=== PATIENT | female | born 2000 | race Caucasian/White ===

== ENCOUNTER 2025-04-09 13:02 | Outpatient (CLI) | payer SELFPAY ==
--- NOTE | ~2025-04-09 | CT_ITS ---
EXAMINATION: CT soft tissue neck wo/w con DATE: 04/09/2025 13:28 INDICATION: Right-sided neck swelling TECHNIQUE: Computed tomography (CT) of the neck was performed without and with 75 mL Omnipaque-350 intravenous contrast. Automated exposure control and iterative reconstruction technique were employed. The dose-length product was 703.59 mGy-cm. COMPARISON: None FINDINGS: Orbits are normal. Scattered mild mucosal thickening in the paranasal sinuses. Mastoid air cells and middle ear cavities are clear. Submandibular and parotid glands are normal and symmetric. Thyroid gland is unremarkable. There are scattered normal-sized lymph nodes in the neck, no lymphadenopathy. No masses or abnormal fluid collections identified. The vasculature is patent and normal in caliber. Airway is unremarkable. Calcified nodule superior segment of the left upper lobe along with calcified mediastinal and bilateral hilar lymph nodes consistent with old granulomatous disease. Bones are unremarkable. IMPRESSION: 1. Soft tissues of the neck are unremarkable with no abnormal masses, fluid collections or pathologically enlarged lymphadenopathy. Reviewed, dictated and finalized at location A. [facility] [employer] IMPRESSION: 1. Soft tissues of the neck are unremarkable with no abnormal masses, fluid col lections or pathologically enlarged lymphadenopathy.
== END 2025-04-09 13:03 | disposition home or self-care (01) ==
LOC: MICIMG 13:06
DX: R22.1 Localized swelling, mass and lump, neck (principal)
CPT/HCPCS: 70492; Q9967